=== PATIENT | female | born 1975 | race Caucasian/White ===

== ENCOUNTER 2017-01-09 10:45 | Outpatient (CLI) | payer BC | END 2017-01-09 10:46 | disposition home or self-care (01) | DX: Z12.31 Encounter for screening mammogram for malignant neoplasm of breast (principal) ==

== ENCOUNTER 2018-11-24 13:46 | Outpatient (CLI) | payer BC ==
--- NOTE | 2018-11-25 08:31 | Mammography Report ---
Reason: SCREENING MAMMO Procedure Date: 11/24/2018 Accession Number: [id number] / [id number] Procedure: JACOB - Screening Mammo w/Ankush CPT Code: FULL RESULT: EXAM: Screening Mammo w/Ankush DATE: 11/24/2018 2:30 PM CLINICAL HISTORY: Screening encounter. History of early menses. Family history of breast cancer in an aunt at the age of 78. TECHNIQUE: Bilateral CC and MLO views were obtained. COMPARISON: 01/09/2017 through 09/12/2014. FINDINGS: The breasts demonstrate scattered fibroglandular densities bilaterally. No suspicious masses, clustered microcalcifications, or regions of architectural distortion are identified. IMPRESSION: Negative examination RECOMMENDATION: Routine annual screening unless otherwise clinically indicated. BIRADS CATEGORY 1: Negative STANDARD QUALIFYING STATEMENTS: 1. This examination was not reviewed with the aid of Computer-Aided Detection (CAD). 2. A negative or benign imaging report should not preclude biopsy if clinically suspicious findings are present. 3. Dense breasts may obscure an underlying neoplasm. 4. This examination was reviewed with the aid of 3D breast imaging (tomosynthesis).
== END 2018-11-24 13:47 | disposition home or self-care (01) ==
LOC: DI 13:46
DX: Z12.31 Encounter for screening mammogram for malignant neoplasm of breast (principal); Z80.3 Family history of malignant neoplasm of breast
CPT/HCPCS: 77063; 77067

== ENCOUNTER 2019-11-22 12:55 | Outpatient (CLI) | payer BC ==
--- NOTE | 2019-11-22 14:17 | Mammography Report ---
Reason: ROUTINE MAMMO Procedure Date: 11/22/2019 Accession Number: [id number] / [id number] Procedure: [facility] - Screening Mammo Dig Bilat CPT Code: Final Report FULL RESULT: EXAM: Screening Mammo Dig Bilat DATE: 11/22/2019 1:20 PM CLINICAL HISTORY: Routine screening TECHNIQUE: (B) - Bilateral CC and MLO views were obtained. COMPARISON: 11/24/2018, 01/09/2017, 10/02/2015, 09/12/2014 PARENCHYMAL PATTERN: (A) - The breasts demonstrate scattered fibroglandular densities bilaterally. FINDINGS: No significant interval change. There are no suspicious masses, calcifications, or areas of distortion. IMPRESSION: Negative examination. BI-RADS category 1. RECOMMENDATION: (ANNUAL) - Recommend routine annual screening mammography. BI-RADS CATEGORY: (1) - Negative. STANDARD QUALIFYING STATEMENTS: 1. This examination was not reviewed with the aid of Computer-Aided Detection (CAD). 2. A negative or benign imaging report should not preclude biopsy if clinically suspicious findings are present. 3. Dense breasts may obscure an underlying neoplasm. 4. This examination was reviewed without the aid of 3D breast imaging (tomosynthesis).
== END 2019-11-22 12:56 | disposition home or self-care (01) ==
LOC: DI.S 12:55
PROVIDERS: ATTEND Nurse Practitioner Obstetrics & Gynecology
DX: Z12.31 Encounter for screening mammogram for malignant neoplasm of breast (principal)
CPT/HCPCS: 77067

== ENCOUNTER 2019-11-22 13:00 | Outpatient (CLI) | payer BC ==
[2019-11-22 18:16] LABS: T4 (THYROXINE) 6.77 ug/dL (6.09-12.23)
[2019-11-22 18:20] LABS: THYROID STIMULATING HORMONE 1.68 uIU/mL (0.34-5.60)
== END 2019-11-22 13:01 | disposition home or self-care (01) ==
LOC: LAB.S 13:00
PROVIDERS: ATTEND Nurse Practitioner Obstetrics & Gynecology
DX: Z87.2 Personal history of diseases of the skin and subcutaneous tissue (principal)
CPT/HCPCS: 36415; 84436; 84443

== ENCOUNTER 2021-05-14 14:34 | Outpatient (CLI) | payer BC ==
--- NOTE | 2021-05-15 11:57 | Mammography Report ---
BILATERAL DIGITAL SCREENING MAMMOGRAM 3D/2D: 05/14/2021 CLINICAL: Routine screening. Comparison is made to exams dated: 11/22/2019 mammogram, 11/24/2018 mammogram, 01/09/2017 mammogram, an d 10/02/2015 mammogram - [facility]. There are scattered fibroglandular elements in both breasts. No significant masses, calcifications, or other findings are seen in either breast. There has been no significant interval change. IMPRESSION: NEGATIVE There is no mammographic evidence of malignancy. A 1 year screening mammogram is recommended. This exam was interpreted at Station ID: [id number]. NOTE: For mammograms, a report in lay terms will be sent to the patient. Approximately 15% of breast malignancies will not be visualized mammographically. In the management of a palpable breast mass, a negative mammogram must not discourage biopsy of a clinically suspicious lesion. Electronically Signed By: Yogi Aguilera M.D. slc/penrad:05/14/2021 16:39:23 ACR BI-RADS Category 1: Negative 3341F PARENCHYMAL PATTERN: (A) - The breast(s) demonstrate(s) scattered fibroglandular densities. BI-RADS CATEGORY: (1) - 1 RECOMMENDATION: (ANNUAL) - Recommend routine annual screening mammography. [id number] 1 year screening LATERALITY: (B)
== END 2021-05-14 14:35 | disposition home or self-care (01) ==
LOC: DI 14:34
PROVIDERS: ATTEND Nurse Practitioner Obstetrics & Gynecology
DX: Z12.31 Encounter for screening mammogram for malignant neoplasm of breast (principal)